=== PATIENT | male | born 1945 | race Caucasian/White ===

== ENCOUNTER 2018-05-16 14:35 | Emergency (ER) | payer MEDICARE, MEDICAID, OTHER ==
[~2018-05-16] VITALS: Ht 175.3 cm; Wt 60.0 kg
[~2018-05-16 14:35] MED LIST: AMLO5TAB PO; IPRA4AER IH; LACT10SO PO; LORA0.5T PO; METO100T14 PO; MULT-1154 PO; PANT-47 PO; POTA20TA19 PO
[2018-05-16 15:18] VITALS: BP 97/59
[2018-05-16 16:02] LABS: BASOPHILS % (AUTO) 0.3 % (0-1); EOSINOPHILS # (AUTO) 0.1 X10'3 (0-0.9); EOSINOPHILS % (AUTO) 3.6 % (0-6); HEMATOCRIT 52.5 % (42.0-52.0); HEMOGLOBIN 17.4 g/dl (14.0-17.9); LYMPHOCYTES # (AUTO) 0.4 X10'3 (1.1-4.8); LYMPHOCYTES % (AUTO) 10.5 % (21-51); MEAN CORPUSCULAR HEMOGLOBIN 31.6 PG (27.0-31.0); MEAN CORPUSCULAR HGB CONC 33.2 % (33.0-36.5); MEAN CORPUSCULAR VOLUME 95.1 FL (78-98); MEAN PLATELET VOLUME 10.9 FL (7.4-10.4); MONOCYTES # (AUTO) 0.3 X10'3 (0-0.9); MONOCYTES % (AUTO) 7.5 % (2-12); NEUTROPHILS # (AUTO) 3.2 X10'3 (1.8-7.7); NEUTROPHILS % (AUTO) 78.1 % (42-75); PLATELET COUNT 100 X10'3 (140-440); RED BLOOD COUNT 5.52 X10'6 (4.70-6.10); RED CELL DISTRIBUTION WIDTH 13.5 % (11.5-14.5)
[2018-05-16 16:15] LABS: ALANINE AMINOTRANSFERASE 198 U/L (12-78); ALBUMIN 3.3 G/DL (3.4-5.0); ALBUMIN/GLOBULIN RATIO 0.9 (1.1-1.5); ALKALINE PHOSPHATASE 102 IU/L (46-116); ANION GAP 5 (8-16); ASPARTATE AMINO TRANSFERASE 97 U/L (10-37); BILIRUBIN,TOTAL 0.5 MG/DL (0.1-1.0); BLOOD UREA NITROGEN 12 MG/DL (7-18); BUN/CREATININE RATIO 11.7 (5.4-32.0); CALCIUM 8.9 MG/DL (8.5-10.1); CHLORIDE 103 MMOL/L (99-107); CREATININE 1.03 MG/DL (0.60-1.10); GLUCOSE 109 MG/DL (70-104); POTASSIUM 3.8 MMOL/L (3.5-5.1); SODIUM 141 MMOL/L (135-145); TOTAL CARBON DIOXIDE 32.6 MMOL/L (24-32); TOTAL PROTEIN 7.1 G/DL (6.4-8.2); eGFR 71 ML/MIN
[2018-05-16 16:18] LABS: CLARITY,URINE CLEAR (Clear); COLOR,URINE YELLOW (Yellow); GLUCOSE, URINE NEGATIVE (Neg); KETONES,URINE NEGATIVE (Neg); LEUKOCYTE ESTERASE ,URINE NEGATIVE (Neg); NITRITES, URINE NEGATIVE (Neg); OCCULT BLOOD,URINE NEGATIVE (Neg); PROTEIN,URINE NEGATIVE (Neg); UA COLLECTION TYPE CLN CATCH MIDSTREAM; UROBILINOGEN,URINE 0.2 E.U/dL (0.2-1.0)
[2018-05-16] MEDS ORDERED: PRED50TA PO (16:43)
[2018-05-16] MEDS ORDERED: AZIT500T PO (16:43)
== END 2018-05-16 16:50 ==
LOC: ER 14:35
DX: J44.1 Chronic obstructive pulmonary disease with (acute) exacerbation (principal); I10 Essential (primary) hypertension; F17.210 Nicotine dependence, cigarettes, uncomplicated; Z79.2 Long term (current) use of antibiotics; Z79.899 Other long term (current) drug therapy
CPT/HCPCS: 36415; 80053; 81003; 85025; 99283

== ENCOUNTER 2020-04-14 09:30 | Emergency (ER) | payer OTHER, MEDICARE, MEDICAID ==
[~2020-04-14] VITALS: Ht 175.3 cm; Wt 77.3 kg
[~2020-04-14 09:30] MED LIST changes: +PRED50TA PO
--- NOTE | 2020-04-14 10:23 | NUR ---
Bhavana Cantu is POA her number [phone]
[2020-04-14] MEDS ORDERED: methylPREDNISolone sod succ 125mg/2ml vial IV ONE (10:30)
[2020-04-14 10:39] LABS: BASOPHILS % (AUTO) 0.4 % (0-1); EOSINOPHILS # (AUTO) 0.2 X10'3 (0-0.9); EOSINOPHILS % (AUTO) 2.6 % (0-6); HEMATOCRIT 50.5 % (42.0-52.0); HEMOGLOBIN 16.9 g/dl (14.0-17.9); LYMPHOCYTES # (AUTO) 0.4 X10'3 (1.1-4.8); LYMPHOCYTES % (AUTO) 5.7 % (21-51); MEAN CORPUSCULAR HEMOGLOBIN 32.6 PG (27.0-31.0); MEAN CORPUSCULAR HGB CONC 33.5 g/dL (33.0-36.5); MEAN CORPUSCULAR VOLUME 97.3 FL (78-98); MEAN PLATELET VOLUME 9.4 FL (7.4-10.4); MONOCYTES # (AUTO) 0.8 X10'3 (0-0.9); MONOCYTES % (AUTO) 12.3 % (2-12); NEUTROPHILS # (AUTO) 5.4 X10'3 (1.8-7.7); PLATELET COUNT 153 X10'3 (140-440); RED BLOOD COUNT 5.19 X10'6 (4.70-6.10); RED CELL DISTRIBUTION WIDTH 13.9 % (11.5-14.5); WHITE BLOOD COUNT 6.9 X10'3 (4.5-11.0)
[2020-04-14 10:52] LABS: PARTIAL THROMBOPLASTIN TIME 26 SECONDS (22-32)
--- NOTE | 2020-04-14 10:54 | NUR ---
phone number for girlfriend [phone]
[2020-04-14 11:04] LABS: ALANINE AMINOTRANSFERASE 21 U/L (12-78); ALBUMIN/GLOBULIN RATIO 0.7 (1.1-1.5); ALKALINE PHOSPHATASE 105 IU/L (46-116); ANION GAP 9 (8-16); ASPARTATE AMINO TRANSFERASE 21 U/L (10-37); BILIRUBIN,TOTAL 0.9 MG/DL (0.1-1.0); BLOOD UREA NITROGEN 13 MG/DL (7-18); BUN/CREATININE RATIO 11.8 (5.4-32.0); CALCIUM 9.1 MG/DL (8.5-10.1); CHLORIDE 109 MMOL/L (99-107); GLUCOSE 109 MG/DL (70-104); POTASSIUM 3.5 MMOL/L (3.5-5.1); SODIUM 145 MMOL/L (135-145); TOTAL CARBON DIOXIDE 27.3 MMOL/L (24-32); TOTAL PROTEIN 7.3 G/DL (6.4-8.2); eGFR 66 ML/MIN
[2020-04-14] MEDS ORDERED: ipratropium/albuterol 3ml nebule NEB ONE ×2 (11:35→13:10)
[2020-04-14] MEDS ORDERED: normal saline 1000ML IV soln IVB ONE (11:55)
[2020-04-14 12:18] LABS: CLARITY,URINE CLOUDY (Clear); COLOR,URINE AMBER (Yellow); GLUCOSE, URINE NEGATIVE (Neg); KETONES,URINE TRACE mg/dl (Neg); LEUKOCYTE ESTERASE ,URINE SMALL (Neg); NITRITES, URINE NEGATIVE (Neg); OCCULT BLOOD,URINE SMALL (Neg); PROTEIN,URINE NEGATIVE (Neg)
[2020-04-14 12:30] LABS: UA COLLECTION TYPE URINAL
[2020-04-14 12:32] LABS: BACTERIA,URINE 4+ /HPF (Neg); MUCUS STRANDS NONE SEEN /LPF (Neg); SQUAMOUS EPITHELIAL CELL,UR FEW /LPF (FEW)
[2020-04-14 12:33] LABS: WBC CLUMPS,URINE MODERATE /HPF (NEGATIVE)
[2020-04-14] MEDS ORDERED: iohexol 350MG/ML 100ml bottle IV ONE (12:43)
--- NOTE | 2020-04-14 12:50 | NUR ---
pt pulled out IV
--- NOTE | 2020-04-14 13:25 | NUR ---
pt refused blood draw, provider aware
--- NOTE | 2020-04-14 13:53 | NUR ---
pt refuses IV, provider aware, pt combative
[2020-04-14] MEDS ORDERED: enoxaparin 100mg/ml syringe SUBCUT ONE (14:05)
[2020-04-14] MEDS ORDERED: enoxaparin 80mg/0.8ml syringe SUBCUT ONE (14:10)
--- NOTE | 2020-04-14 14:15 | NUR ---
TO CT SCAN ASSISTING PRIMARY RN KIRA
[2020-04-14] MEDS ORDERED: CefTRIAXone/D5W-Rocephin 1gm 50 ML IV ONE (14:35)
[2020-04-14] MEDS ORDERED: nicotine 21mg patch - 24 hr TD ONE (16:25)
--- NOTE | 2020-04-14 17:00 | NUR ---
PATIENT PLACED IN COVID ISOLATION WITH HEPA FILTER
[2020-04-14] MEDS ORDERED: furosemide 10 MG/1 ML 10ml inj IV ONE (17:20)
[2020-04-14 17:49] VITALS: BP 152/87
[2020-04-14] MEDS ORDERED: CEPH500C5 PO (18:15)
[2020-04-14] MEDS ORDERED: PRED20TA PO (18:15)
--- NOTE | 2020-04-14 20:03 | NUR ---
CALLED REPORT TO RAISA URBINA IN RECOVERY
== END 2020-04-14 21:04 | disposition home or self-care (01) ==
LOC: ER 09:31
DX: J44.9 Chronic obstructive pulmonary disease, unspecified (principal); N39.0 Urinary tract infection, site not specified; R18.8 Other ascites; F03.90 Unspecified dementia, unspecified severity, without behavioral disturbance, psychotic disturbance, mood disturbance, and anxiety; I10 Essential (primary) hypertension; F17.200 Nicotine dependence, unspecified, uncomplicated; Z72.89 Other problems related to lifestyle; Z79.899 Other long term (current) drug therapy
CPT/HCPCS: 36415; 71045; 71275; 80053; 81001; 82140; 83605; 83880; 84145; 84484; 85025; 85379; 85610; 85730; 87040; 87077; 87088; 87186; 87635; 93005; 94640; 96365; 96366; 96372; 96375; 99285; C9803; J0696; J1940; J2930; J7030; Q9967; 94760; J1650